=== PATIENT | male | born 1975 | race Caucasian/White ===

== ENCOUNTER 2019-11-17 10:50 | Emergency (ER) | payer OTHER, SELFPAY ==
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
[2019-11-17 10:50] VITALS: BP 196/116; PULSE 112; RESP 20; TEMP 36.7; O2SAT 100
--- NOTE | 2019-11-17 11:00 | ECG_ITS ---
Measurements Intervals [place] Rate: 104 P: 48 CA: 164 QRS: 89 QRSD: 85 T: -7 QT: 308 QTc: 406 Interpretive Statements SINUS TACHYCARDIA BORDERLINE ST-T WAVE ABNORMALITY- INFERIOR LEADS BORDERLINE ECG Electronically Signed On 11-17-2019 12:34:00 CDT by Harris Borja D.O.
[2019-11-17] MEDS: ONDANSETRON HCL ODT 4 MG TABLET PO (11:12)
[2019-11-17 11:21] LABS: Hematocrit 49.6 % (40.0-54.0); Hemoglobin 17.1 g/dL (14.0-18.0); Mean Corpuscular HGB Conc 34.5 g/dL (32.0-36.0); Mean Corpuscular Hemoglobin 29.4 pg (27.0-31.0); Mean Corpuscular Volume 85.2 fL (78.0-102.0); Mean Platelet Volume 12.4 fl (8.7-11.0); Platelet Count Result 182 K/mm3 (150-420); Red Blood Count 5.82 M/mm3 (4.70-6.10); Red Cell Distribution Width 12.3 % (11.6-14.4); White Blood Count 13.9 K/mm3 (4.8-10.8)
[2019-11-17 11:36] LABS: Alanine Aminotransferase 77 U/L (16-63); Alkaline Phosphatase 76 U/L (46-116); Aspartate Amino Transferase 29 U/L (15-37); Bilirubin,Total 0.3 mg/dL (0.00-1.00); Blood Urea Nitrogen 12 mg/dL (7-18); Calcium 9.2 mg/dL (8.5-10.1); Carbon Dioxide 29 mmol/L (21-32); Chloride 100 mmol/L (98-108); Creatine Kinase 158 U/L (39-308); Estimated CRCL calculation 86 ml/min; Estimated Glomerular Filt Rate > 60; Glucose 122 mg/dL (70-99); Osmolality Calculated 290 mOsm/kg (285-295); Sodium 140 mmol/L (136-145); Total Protein 7.4 g/dL (6.4-8.2)
[2019-11-17 11:39] LABS: Troponin I < 0.02 ng/mL (0.00-0.056)
[2019-11-17 11:46] VITALS: BP 162/93; PULSE 100; RESP 18; O2SAT 98
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
[2019-11-17 12:05] VITALS: BP 149/95; PULSE 108; RESP 18; O2SAT 98
== END 2019-11-17 12:05 | disposition home or self-care (01) ==
PROVIDERS: Emergency Provider Emergency Medicine; PCP Family Medicine
DX: S29.012A Strain of muscle and tendon of back wall of thorax, initial encounter (principal); V89.2XXA Person injured in unspecified motor-vehicle accident, traffic, initial encounter
CPT/HCPCS: 36415; 70450; 71046; 80053; 82550; 84484; 85027; 93005; 99284; A9270

== ENCOUNTER 2019-11-28 15:35 | Outpatient (CLI) | payer OTHER, SELFPAY ==
--- NOTE | ~2019-11-28 | XR_ITS ---
EXAMINATION: XR lumbar spine 2-3V EXAM DATE: 11/28/2019 16:21 INDICATION: Low back pain into left leg. TECHNIQUE: Lumber spine frontal, lateral, lateral L5-S1 projections for interpretation. Comparison is made to prior examination from 01/24/2013. FINDINGS: Partially sacralized L5 segment. There is mild lumbar facet arthropathy. Mild lumbar disc disease at L4-5 and L5-S1. Sacrum, sacroiliac joints, sacral arcuate lines are intact. The vertebral bodies are aligned in the AP dimension. Paraspinal soft tissue is unremarkable. IMPRESSION: Mild lumbar spondylosis. Reviewed, dictated and finalized at location A. IMPRESSION: Mild lumbar spondylosis.
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
== END 2019-11-28 15:36 | disposition home or self-care (01) ==
LOC: CHSLAB 15:39
PROVIDERS: PCP Family Medicine; Visit Provider Family Medicine
DX: M54.2 Cervicalgia (principal); M54.5 Low back pain
CPT/HCPCS: 72040; 72100

== ENCOUNTER 2019-11-30 11:01 | Outpatient (RCR) | payer OTHER, SELFPAY ==
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
--- NOTE | 2019-12-27 10:24 | PTOPEVAL ---
Thank you for referring Pancho Fong to [facility]. Please review, sign, date and return this plan of care [place]. I agree with and certify that the following plan of care is medically necessary. Referring Physician Date Admitting Provider: Attending Provider: Keaton Hunt MD Referring Provider: *PT Outpatient Evaluation Start: 11/30/19 11:03 Freq: Status: Active Protocol: Document 12/27/19 08:55 [facility] (Rec: 12/27/19 10:23 [facility] [id number]) Therapy Assessment Status Assessment Status Assessment Status Re-evaluation Outpatient Past Medical History Musculoskeletal History Hx Back Pain Yes: back surgery Evaluation Information Problem Diagnosis neck and back pain Subjective Information patient reports his neck feels Query Text:As Reported By Patient/ much better with nearly no Family pain in the last week. however , he reports his back pain and L LE pain/symptoms are still present and unchanged. he reports he has no increased symptoms or change in pain with any movements or activities. Pain Assessment Timing of Pain Assessment Timing of Pain Assessment Assessment Pain Scale Pain Scale Used Numeric (1 - 10) Self Report Pain Assessment Lower Back Reported Pain Level 4 Greatest Pain Intensity 5 Neck Reported Pain Level 0 Greatest Pain Intensity 0 Pain Score Pain Score 4,0: Self Report Cervical and Lumbar ROM Cervical ROM Cervical Flexion (0-60) 55 Query Text:Active in Degrees Cervical Extension (0-70) 50 Query Text:Active in Degrees Cervical Lateral Flexion Right (0-50) 30 Query Text:Active in Degrees Cervical Lateral Flexion Left (0-50) 30 Query Text:Active in Degrees Cervical Rotation Right (0-90) 70 Query Text:Active in Degrees Cervical Rotation Left (0-90) 60 Query Text:Active in Degrees Lumbar ROM Lumbar Flexion Active Mid Mcknight Query Text:Hands to: Lumbar Extension (0-40) 20 Query Text:Active in Degrees Lumbar Lateral Flexion Right (0-40) 30 Query Text:Active in Degrees Lumbar Lateral Flexion Left (0-40) 30 Query Text:Active in Degrees Lumbar Comments increased back pain with lumbar extension Cervical and Lumbar Muscle Testing Cervical Muscle Testing Cervical Flexion 5 Normal Cervical Extension 5 Normal Cervical Lateral Flexion Right 5 Normal Cervical L
== END 2020-01-17 13:10 | disposition home or self-care (01) ==
LOC: CHSPT 11:01
PROVIDERS: PCP Family Medicine; Visit Provider Family Medicine
DX: M54.16 Radiculopathy, lumbar region (principal); M54.5 Low back pain; M54.2 Cervicalgia
CPT/HCPCS: 97012; 97014; 97110; 97140; 97161; 97530; G0283

== ENCOUNTER 2019-12-24 11:04 | Outpatient (CLI) | payer OTHER, SELFPAY ==
--- NOTE | ~2019-12-24 | MR_ITS ---
EXAMINATION: MR lumbar spine w con EXAM DATE: 12/24/2019 12:55 INDICATION: Surgery 6 years ago. Constant back pain down left leg into toes. Reportedly verified that only postcontrast sequences were desired. TECHNIQUE: Lumber spine MRI obtained. Postcontrast axial and sagittal T1-weighted fat saturation seq uences, axial T2-weighted sequence were obtained. Comparison is made to prior examination from 013. FINDINGS: No evidence of epidural abscess, discitis or unexpected enhancement. The vertebral bodies a re aligned in the AP dimension. There is mild to moderate loss of the L4-5 disc height. There is sia enitally narrow L5-S1 disc space The conus medullaris terminates at the L1/2 level and has normal sig nal intensity and morphology. Paraspinal soft tissue is unremarkable. Level by level evaluation: L1-L2: Disc does not extend beyond the endplate margin. Facet arthropathy: None. Neural foraminal stenosis: No stenosis. Central canal stenosis: No stenosis. L2-L3: Disc does not extend beyond the endplate margin. Facet arthropathy: Mild. Neural foraminal stenosis: No stenosis. Central canal stenosis: No stenosis.. L3-L4: Disc does not extend beyond the endplate margin. Facet arthropathy: Mild. Neural foraminal stenosis: No stenosis. Central canal stenosis: No stenosis. L4-L5: There is a mild diffuse disc bulge. Facet arthropathy: Mild to moderate. Neural foraminal stenosis: Mild bilateral. Central canal stenosis: Mild. Left hemilaminotomy. L5-S1: Disc does not extend beyond the endplate margin. Facet arthropathy: Mild. Neural foraminal stenosis: No stenosis. Central canal stenosis: No stenosis. IMPRESSION: 1. Interval L4-5 left hemilaminotomy.. 2. Mild lumbar spondylosis. Reviewed, dictated and finalized at location A.
[2019-12-24 12:03] LABS: Estimated Glomerular Filt Rate > 60
== END 2019-12-24 11:05 | disposition home or self-care (01) ==
LOC: CHSIMG 11:06
PROVIDERS: PCP Family Medicine; Visit Provider Family Medicine
DX: M54.16 Radiculopathy, lumbar region (principal)
CPT/HCPCS: 72149; A9577

== ENCOUNTER 2020-04-10 09:03 | Outpatient (CLI) | payer OTHER, SELFPAY ==
[2020-04-11 18:39] LABS: SARS-CoV-2 RNA PCR Negative
== END 2020-04-10 09:04 | disposition home or self-care (01) ==
LOC: CHSLAB 09:06
PROVIDERS: PCP Family Medicine; Visit Provider Family Medicine
DX: Z20.828 Contact with and (suspected) exposure to other viral communicable diseases (principal)
CPT/HCPCS: 87635; C9803; U0003

== ENCOUNTER 2021-11-12 10:55 | Outpatient (CLI) | payer OTHER, SELFPAY ==
--- NOTE | ~2021-11-12 | XR_ITS ---
EXAMINATION: XR lumbar spine 2-3V DATE: 11/12/2021 11:12 INDICATION: Chronic low back pain TECHNIQUE: Anteroposterior and lateral views of the lumbar spine, and cone-down lateral view of the l umbosacral junction were obtained. COMPARISON: 11/28/2019 FINDINGS: Again noted is a partially sacralized L5 segment. Bone alignment is normal. There is no fra cture. There is mild loss of intervertebral disc space height at L4-5 and L5-S1. The bowel gas patter n is normal. The prevertebral soft tissues are unremarkable. Small degenerative osteophytes project f rom the anterior endplates of multiple vertebral bodies. IMPRESSION: 1. Mild lumbar spondylosis without acute findings or significant interval change. Reviewed, dictated and finalized at location F. IMPRESSION: 1. Mild lumbar spondylosis without acute findings or significant interval soto fela
== END 2021-11-12 10:56 | disposition home or self-care (01) ==
LOC: CHSIMG 10:57
PROVIDERS: PCP Family Medicine; Visit Provider Family Medicine
DX: M54.50 Low back pain, unspecified (principal)
CPT/HCPCS: 72100

== ENCOUNTER → 2022-03-29 08:37 | Outpatient (CLI) | payer OTHER, SELFPAY ==
--- NOTE | ~2022-03-29 | MR_ITS ---
EXAMINATION: MR lumbar spine wo con DATE: 03/29/2022 09:15 INDICATION: Low back pain. Left leg pain. TECHNIQUE: Magnetic resonance imaging (MRI) of the lumbar spine was performed without intravenous con trast. Sequences included sagittal T2-weighted FSE, sagittal T2-weighted FS FSE, sagittal T1-weighted FSE, and axial T2-weighted FSE. COMPARISON: Lumbar spine MRI 12/24/2019 FINDINGS: There is 8 degrees dextrocurvature of thoracolumbar spine. Vertebral body heights are gerardo l. There is moderately decreased disc height at L4-L5. The distal spinal cord signal intensity is nor mal. The conus medullaris is at L1. The following disc levels are specifically discussed: L1-L2: The disc does not extend beyond the endplate margin. There is mild bilateral facet joint osteo arthritis. There is no neural foraminal stenosis. There is no central canal stenosis. L2-L3: The disc does not extend beyond the endplate margin. There is mild bilateral facet joint osteo arthritis. There is no neural foraminal stenosis. There is no central canal stenosis. L3-L4: There is a left foraminal protrusion. There is mild bilateral facet joint osteoarthritis. Ther e is mild left neural foraminal stenosis. There is no central canal stenosis. L4-L5: The disc is bulging with superimposed central extrusion. There is mild bilateral facet joint o steoarthritis. There is moderate right and mild left neural foraminal stenosis. There is mild central canal stenosis. L5-S1: The disc does not extend beyond the endplate margin. There is mild right and moderate left fac et joint osteoarthritis. There is no neural foraminal stenosis. There is no central canal stenosis. IMPRESSION: 1. Stable moderate spondylosis at L4-L5 and mild spondylosis at other levels. Reviewed, dictated and finalized at location A.
== END ==
PROVIDERS: PCP Family Medicine; Visit Provider Family Medicine
DX: M47.26 Other spondylosis with radiculopathy, lumbar region (principal)
CPT/HCPCS: 72148

== ENCOUNTER 2022-04-08 07:44 | Outpatient (CLI) | payer OTHER, SELFPAY ==
--- NOTE | ~2022-04-08 | US_ITS ---
US right upper quadrant DATE: 04/08/2022 08:17 INDICATION: Elevated liver enzymes TECHNIQUE: Real-time imaging of liver, pancreas, gallbladder COMPARISON: None FINDINGS: No hepatic space-occupying mass lesion is evident. Normal hepatopedal portal venous flow di rection. No gallstones, gallbladder wall thickening, abnormal pericholecystic fluid collection. Negat bernadine sonographic Corona's sign. The common bile duct measures 3.7 mm, normal. The pancreatic head, neck and proximal body are unremarkable. The lateral body and tail are obscured by bowel gas. IMPRESSION: Limited visualization of the pancreas; otherwise unremarkable examination Reviewed, dictated and finalized at Location A. Reviewed, dictated and finalized at location B. IMPRESSION: Limited visualization of the pancreas; otherwise unremarkable exami nation
== END 2022-04-08 07:45 | disposition home or self-care (01) ==
LOC: CHSIMG 07:47
PROVIDERS: PCP Family Medicine; Visit Provider Family Medicine
DX: R94.5 Abnormal results of liver function studies (principal)
CPT/HCPCS: 76705

== ENCOUNTER 2022-06-09 08:51 | Outpatient (RCR) | payer OTHER, SELFPAY ==
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
--- NOTE | 2022-07-09 08:57 | PTOPDC ---
Assessment and note entered by Rachel Dailey DPT Evaluation Information Assessment Status Discharge Diagnosis lumbar radiculopathy Onset 05/21/22 Subjective Information Pt reports that he feels about the same as he has been feeling. He is feeling about the same since starting PT. He still has difficulty with maintaining positions for long periods of time. He is hoping to get another injection soon. He does not yet have a follow-up scheduled with his MD but plans to schedule one soon. Reported Pain Level Pain Score 6: Self Report Assessment PT Clinical Summary Pt presents to PT without significant improvements in pain and quality of life since his initial evaluation. He demonstrates some improvements in range of motion, but remains limited in segmental mobility of the lumbar spine. He was educated on continuing his HEP independently and his current activity level to further improve/maintain his improvements in range of motion. He is to follow- up with his MD regarding his POC going forward as well as considering another potential injection for his back. Plan of Care PT Services Indicated No
== END 2022-07-09 14:29 | disposition home or self-care (01) ==
LOC: CHSPT 08:51
DX: M54.16 Radiculopathy, lumbar region (principal)
CPT/HCPCS: 97014; 97110; 97140; 97161; G0283

== ENCOUNTER 2023-02-18 11:16 | Emergency (ER) | payer OTHER, SELFPAY ==
[2023-02-18] VITALS (12 sets, daily range): BP systolic 121–153; BP diastolic 69–100; PULSE 86–105; RESP 13–19; TEMP 36.3–36.9; O2SAT 94–100
--- NOTE | ~2023-02-18 | XR_ITS ---
EXAMINATION: XR chest 1V portable DATE: 02/18/2023 11:57 INDICATION: Midsternal chest pain TECHNIQUE: frontal view of the chest was obtained. COMPARISON: Chest radiograph dated 11/17/2019 FINDINGS: Unchanged minimal biapical pleural-parenchymal scarring. No other airspace opacities, pulmonary edema , pleural effusion or pneumothorax. The cardiomediastinal silhouette is normal. Visualized bones and soft tissues are unremarkable. IMPRESSION: 1. No acute cardiopulmonary disease. Reviewed, dictated and finalized at location A.
--- NOTE | 2023-02-18 11:27 | ED.CHESTPAIN ---
HPI - Chest Pain General Chief Complaint: Chest Pain Stated Complaint: chest pain Time Seen by Provider: 02/18/23 11:25 Source: patient Mode of arrival: ambulatory Limitations: no limitations History of Present Illness HPI narrative: 47-year-old male smoker positive history of artery, GERD, status post back surgery presents to the ER with a 3 day history -- anterior chest pain. Rated as 1/10. The patient has had prior history of chest pain and was due to get stress test but was never really done secondary to insurance purposes. no radiation of the pain. Pain is continuous. Pain started while he was trying to put drywall on his garage roof. MD complaint: chest pain Onset (ago): day(s) ( Started 3 days ago) Timing of current episode: constant Onset: during rest Pain location: substernal Pain radiation: none Severity: mild Pain scale (0-10): 1 Quality: aching Relieving factors: nothing Exacerbating factors: nothing Related Data Home Medications Medication Instructions Recorded Confirmed esomeprazole magnesium 20 mg 20 mg PO DAILY 11/17/19 02/18/23 capsule,delayed release (Nexium) losartan 25 mg tablet See Rx Instructions PO BID 06/30/22 02/18/23 Allergies Allergy/AdvReac Type Severity Reaction Status Date / Time ibuprofen Allergy Gastrointestinal Verified 02/18/23 11:27 Upset SHELLFISH Allergy Mild Rash Uncoded 06/30/22 15:08 Review of Systems Review of Systems: All systems reviewed & are unremarkable except as noted in HPI and below Constitutional: Constitutional: Reports as per HPI and Reports no additional constitutional complaints Eyes: Eyes: Reports as per HPI and Reports no additional eye complaints ENT: Reports system reviewed and no additional complaints, except as documented and Reports as per HPI Cardiovascular: Cardiovascular: Reports as per HPI, Reports no additional cardiovascular complaints and Reports chest pain Respiratory: Respiratory: Reports as per HPI and Reports no additional respiratory complaints Gastrointestinal: Gastrointestinal: Reports as per HPI and Reports no additional gastrointestinal complaints Genitourinary: Genitourinary: Reports no additional male genitourinary complaints and Reports as per HPI Musculoskeletal: Musculoskeletal: Reports no additional musculoskeletal complaints and Reports as per HPI Integumentary/Breasts: Skin/Breast: Reports system reviewed and no additional complaints, except as docu and Reports as per HPI Neurologic: Reports system reviewed and no additional complaints, except as documented and Reports as per HPI Psychiatric: Psychiatric: Reports no additional psychiatric complaints and Reports as per HPI Endocrine: Endocrine: Reports no additional endocrine complaints and Reports as per HPI Hematologic/Lymphatic: Hematologic/Lymphatic: Reports no additional hematologic/lymphatic complaints and Reports as per HPI Allergic/Immunologic: Allergic/Immunologic: Reports no additional allergic/immunologic complaints and Reports as per HPI [facility] Past Medical History Medical History Patient denies medical problems Surgical History Surgical History History of spinal surgery Family History Family History Grandparent Acute myocardial infarction Sibling Acute myocardial infarction FH: CABG (coronary artery bypass surgery) Social History Social History Smoking status: Current every day smoker Lack of Transportation: No Lack of Food: Never True Current Housing: I Have Housing Concerned About Future Housing: No Difficulty Paying Gas/Electric Bills: No Difficulty Paying for Meds: No Currently Unemployed: No Education: High School Diploma/GED Difficulty w/ Childcare or Family Care: No Gender i
--- NOTE | 2023-02-18 11:37 | ECG_ITS ---
Measurements Intervals [place] Rate: 107 P: 29 IL: 148 QRS: 87 QRSD: 86 T: -1 QT: 320 QTc: 428 Interpretive Statements SINUS TACHYCARDIA NONSPECIFIC T-WAVE ABNORMALITY COMPARED TO ECG 11/17/2019 11:38:15 T-WAVE ABNORMALITY NOW PRESENT Electronically Signed On 02-18-2023 19:41:55 CDT by Priscilla Avila M.D.
[2023-02-18 11:58] LABS: Basophils Absolute Auto 0.03 K/mm3 (0.00-0.10); Basophils Percent Auto 0.3 % (0.0-1.0); Eosinophils Absolute Auto 0.08 K/mm3 (0.02-0.50); Eosinophils Percent Auto 0.8 % (1.0-6.0); Hematocrit 46.7 % (40.0-54.0); Hemoglobin 16.1 g/dL (14.0-18.0); Immature Granulocyte Absolute 0.04 K/mm3 (0.00-0.00); Immature Granulocyte Percent A 0.4 % (0.0-0.0); Immature Platelet Fraction Pct 11.6 % (1.0-7.0); Lymphocytes Percent Auto 13.3 % (18.0-42.0); Mean Corpuscular HGB Conc 34.5 g/dL (32.0-36.0); Mean Corpuscular Hemoglobin 29.4 pg (27.0-31.0); Mean Corpuscular Volume 85.2 fL (78.0-102.0); Mean Platelet Volume 13.3 fl (8.7-11.0); Monocytes Absolute Auto 0.62 K/mm3 (0.10-0.90); Monocytes Percent Auto 6.3 % (2.0-11.0); Neutrophils Absolute Auto 7.7 K/mm3 (1.7-7.2); Neutrophils Percent Auto 78.9 % (50.0-70.0); Platelet Count Result 155 K/mm3 (150-420); Red Blood Count 5.48 M/mm3 (4.70-6.10); Red Cell Distribution Width 12.6 % (11.6-14.4); White Blood Count 9.8 K/mm3 (4.8-10.8)
[2023-02-18 12:13] LABS: Alanine Aminotransferase 44 U/L (16-63); Alkaline Phosphatase 89 U/L (46-116); Anion Gap 8 mmol/L (8-16); Aspartate Amino Transferase 13 U/L (15-37); Bilirubin,Total 0.5 mg/dL (0.00-1.00); Blood Urea Nitrogen 21 mg/dL (7-18); Calcium 8.8 mg/dL (8.5-10.1); Carbon Dioxide 29 mmol/L (21-32); Chloride 102 mmol/L (98-108); Estimated Glomerular Filt Rate > 60; Glucose 101 mg/dL (70-99); Osmolality Calculated 291 mOsm/kg (285-295); Potassium 3.8 mmol/L (3.5-5.1); Sodium 139 mmol/L (136-145); Troponin I 5.7 ng/L (0.00-60.4)
[2023-02-20 17:39] LABS: Ferritin 116 ng/mL (26-388); Iron 99 ug/dL (65-175); Percent Iron Saturation 31 % (12-57)
== END 2023-02-18 12:37 | disposition home or self-care (01) ==
PROVIDERS: Emergency Provider Internal Medicine Critical Care Medicine; PCP Family Medicine
DX: R07.89 Other chest pain (principal); F17.200 Nicotine dependence, unspecified, uncomplicated
CPT/HCPCS: 36415; 71045; 80053; 82728; 83540; 83550; 84484; 85025; 85055; 93005; 99284

== ENCOUNTER 2023-03-16 08:17 | Outpatient (CLI) | payer OTHER, SELFPAY ==
--- NOTE | 2023-03-16 08:26 | EST_ITS ---
Patient Info Name: Pancho Fong Age: 47 years : 1975 Gender: Male Ht: 76 in Wt: 242 lbs BSA: 2.45 m2 HR: 82 bpm BP: 117 / 80 mmHg Heart Rhythm: Sinus Rhythm Technical Quality: Good Exam Date: 03/16/2023 10:13 AM Exam Location: [facility] Patient Status: Outpatient Admit Date: 03/16/2023 Staff Ordering Physician: Keaton Hunt MD Attending Provider: Keaton Hunt MD Exam Type: CA stress mattie w NM Study Info A regadenoson stress test was performed. History/Risk Factors Hypertension: Yes Summary 1. 1. Negative lexiscan stress test for ischemic ST changes by ECG criteria. 2. 2. Stable hemodynamics throughout the test. 3. 3. Nuclear scan to follow and will be reported separately. Please correlate with it. Protocol: LEXISCAN Stress ECG Details Stage: REST Duration (min): 4 min : 8 sec HR (bpm): 82 SBP (mmHg): 117 DBP (mmHg): 80 Stage: REST Duration (min): 8 min : 18 sec HR (bpm): 82 SBP (mmHg): 117 DBP (mmHg): 80 Stage: STAGE 1 Duration (min): 0 min : 11 sec HR (bpm): 80 SBP (mmHg): 117 DBP (mmHg): 80 Stage: RECOVERY Duration (min): 0 min : 48 sec HR (bpm): 110 SBP (mmHg): 117 DBP (mmHg): 80 Stage: RECOVERY Duration (min): 1 min : 48 sec HR (bpm): 111 SBP (mmHg): 164 DBP (mmHg): 69 Stage: RECOVERY Duration (min): 2 min : 48 sec HR (bpm): 114 SBP (mmHg): 165 DBP (mmHg): 70 Stage: RECOVERY Duration (min): 3 min : 48 sec HR (bpm): 105 SBP (mmHg): 143 DBP (mmHg): 70 Stage: RECOVERY Duration (min): 4 min : 48 sec HR (bpm): 103 SBP (mmHg): 143 DBP (mmHg): 70 Stage: RECOVERY Duration (min): 5 min : 13 sec HR (bpm): 103 SBP (mmHg): 143 DBP (mmHg): 70 Rest HR: 82 bpm Peak HR: 114 bpm Rest Sys BP: 117 mmHg Peak Sys BP: 165 mmHg Max Pred HR: 173 bpm % Max Pred HR: 66 % Target HR: 147 bpm Max RPP: 18,810 bpm*mmHg BP Response: Normal blood pressure response Termination Reason: Completed Protocol Cardiac Symptoms: None Total Time: 0 min : 11 sec Rest Morgan BP: 80 mmHg Peak Morgan BP: 70 mmHg Total Dose: 0.4 mg Resting ECG Normal sinus rhythm - normal ECG. Stress ECG No abnormal ST/T wave changes. Arrhythmias No arrhythmias were observed during the examination. Report Signatures
--- NOTE | 2023-03-16 14:38 | WPDCARIOSTRE ---
Nuclear Stress Test INDICATIONS Indications: Chest pain PROCEDURE Procedure Performed: Myocardial Perf Spect-Multi Procedure: Patient underwent a lexiscan stress test and immediately was injected with 30.5 mCi of cardiolyte. Multiple tomographic images were obtained. These are of good quality. No evidence of perfusion defects with stress imaging. A separate resting images were obtained after patient was injected with 10.3 mCi of cardiolyte. Multiple tomographic images were obtained. These are of good quality. No evidence of perfusion defects with rest imaging. CONCLUSION Conclusion: 1. Normal myocardial perfusion imaging demonstrating no perfusion defects with stress or rest imaging. 2. No evidence of reversible ischemia. 3. Left ventriculogram demonstrates normal measured ejection fraction of 56% with no wall motion abnormalities. 4. TID score 1.17 is normal.
== END 2023-03-16 08:18 | disposition home or self-care (01) ==
LOC: CHSCARD 08:19
PROVIDERS: PCP Family Medicine; Visit Provider Family Medicine
DX: R07.9 Chest pain, unspecified (principal)
CPT/HCPCS: 78452; 93017; A9502; J2785